=== PATIENT | female | born 1980 | race Caucasian/White ===

== ENCOUNTER 2018-08-12 10:46 | Emergency (ER) | payer MEDICAID ==
[2018-08-12 10:58] VITALS: BP 135/84
--- NOTE | 2018-08-12 11:31 | ED Physician Documentation ---
PD HPI FEMALE - Stated complaint Stated Complaint: 5 WKS PREG/BLEEDING - Chief complaint Chief Complaint: Abd Pain - History obtained from History obtained from: Patient, Family - History of Present Illness Timing - onset: Yesterday Timing - duration: Days (1) Timing - details: Gradual onset Pain level max: 2 Pain level max: 1 Associated symptoms: Vaginal bleeding. No: Fever OB-TECHNICAL ENGINEER History: G (3), P (2) Similar symptoms before: Has not had sx before Recently seen: Not recently seen Review of Systems Constitutional: denies: Fever Cardiac: denies: Chest pain / pressure Respiratory: denies: Cough Skin: denies: Rash Musculoskeletal: denies: Neck pain, Back pain Neurologic: denies: Headache PD PAST MEDICAL HISTORY - Past Medical History Past Medical History: No - Past Surgical History Past Surgical History: Yes /TECHNICAL ENGINEER: section - Present Medications Home Medications: Ambulatory Orders Medication Instructions Recorded Confirmed No Known Home Medications 08/12/18 08/12/18 - Allergies Allergies/Adverse Reactions: Allergies Allergy/AdvReac Type Severity Reaction Status Date / Time No Known Drug Allergies Allergy Verified 08/12/18 10:58 - Social History Does the pt smoke?: No Smoking Status: Never smoker Does the pt drink ETOH?: No Does the pt have substance abuse?: No - Immunizations Immunizations are current?: Yes PD ED PE NORMAL - Vitals Vital signs reviewed: Yes - General General: Alert and oriented X 3, No acute distress - HEENT HEENT: Moist mucous membranes - Neck Neck: Supple, no meningeal sign - Cardiac Cardiac: RRR - Respiratory Respiratory: No respiratory distress, Clear bilaterally - Abdomen Abdomen: Soft, Non tender, Non distended - Back Back: No CVA TTP, No spinal TTP - Derm Derm: Warm and dry - Extremities Extremities: No edema - Neuro Neuro: Alert and oriented X 3 Results - Vitals Vitals: Vital Signs - 24 hr 08/12/18 10:56 Temperature 36.8 C Heart Rate 81 Respiratory 18 Rate Blood Pressure 135/84 H O2 Saturation 99 Oxygen O2 Source Room air - Labs Labs: Laboratory Tests 08/12/18 08/12/18 08/12/18 11:21 11:21 11:21 WBC 7.4 RBC 4.70 Hgb 13.8 Hct 40.7 MCV 86.7 MCH 29.3 MCHC 33.8 RDW 13.1 Plt Count 301 MPV 7.8 L Neut # (Auto) 5.6 Lymph # (Auto) 1.3 L Alpine # (Auto) 0.4 Eos # (Auto) 0.1 Baso # (Auto) 0.1 Absolute Nucleated RBC 0.00 Nucleated RBC % 0.0 Sodium 138 Potassium 3.8 Chloride 104 Carbon Dioxide 23 Anion Gap 11.0 BUN 11 Creatinine 0.6 Estimated GFR (MDRD) 113 Glucose 105 H Calcium 9.3 Total Bilirubin 0.7 AST 18 ALT 18 Alkaline Phosphatase 64 Total Protein 8.1 Albumin 4.4 Globulin 3.7 Albumin/Globulin Ratio 1.2 Lipase 27 HCG, Quant Blood Type O POSITIVE 08/12/18 11:21 WBC RBC Hgb Hct MCV MCH MCHC RDW Plt Count MPV Neut # (Auto) Lymph # (Auto) Alpine # (Auto) Eos # (Auto) Baso # (Auto) Absolute Nucleated RBC Nucleated RBC % Sodium Potassium Chloride Carbon Dioxide Anion Gap BUN Creatinine Estimated GFR (MDRD) Glucose Calcium Total Bilirubin AST ALT Alkaline Phosphatase Total Protein Albumin Globulin Albumin/Globulin Ratio Lipase HCG, Quant 13.90 Blood Type - Rads (name of study) OB US Radiology: Prelim report reviewed, EMP read contemporaneously, See rad report ( of unknown location, no intrauterine gestation is detected. Given complex cystic right ovarian lesion, ectopic gestation is not confidently excluded on this single examination. Recommendation is for close interval followup including serial beta hCG, serial examination and followup ultrasound as indicated. ) PD MEDICAL DECISION MAKING - ED course Complexity details: reviewed results, re-evaluated patient, considered differential, d/w patient ED course: 37 year old female with likely miscarriage, but may represent an early ectopic. Patient was counseled that she will need a repeat hCG. I discussed the case with Dr. Corley, OB on-call who states that close follow-up should be fine at this time. 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 Ectopic precautions given at bedside. Patient counseled regarding signs and symptoms for which I believe and urgent re- evaluation would be necessary. Patient with good understanding of and agreement to plan and is comfortable going home at this time This document was made in part using voice recognition software. While efforts are made to proofread this document, sound alike and grammatical errors may occur. Departure - Departure Disposition: 01 Home, Self Care Clinical Impression: Threatened Condition: Good Instructions: ED Miscarriage Poss Follow-Up: [facility] [Provider Group] - Within 3 Days Comments: Follow up with OB in 3 days for a repeat HCG and possibly a repeat US. Your HCG is 14 today. Return sooner if you worsen. I spoke with Dr. Corley today. Discharge Date/Time: 08/12/18 14:42
[2018-08-12 11:33] LABS: BASOPHILS # (AUTO) 0.1 10^3/uL (0.0-0.1); BASOPHILS % (AUTO) 0.9 %; EOSINOPHILS # (AUTO) 0.1 10^3/uL (0.0-0.7); EOSINOPHILS % (AUTO) 1.7 %; HGB - HEMOGLOBIN 13.8 g/dL (12.0-16.0); LYMPHOCYTES # (AUTO) 1.3 10^3/uL (1.5-3.5); MEAN CORPUSCULAR HEMOGLOBIN 29.3 pg (27.0-31.0); MEAN CORPUSCULAR HGB CONC 33.8 g/dL (32.0-36.0); MEAN CORPUSCULAR VOLUME 86.7 fL (81.0-99.0); MEAN PLATELET VOLUME 7.8 fL (7.9-10.8); MONOCYTES # (AUTO) 0.4 10^3/uL (0.0-1.0); MONOCYTES % (AUTO) 5.3 %; NEUTROPHILS # (AUTO) 5.6 10^3/uL (1.5-6.6); NEUTROPHILS % (AUTO) 75.1 %; PLT - PLATELET COUNT 301 10^3/uL (130-450); RED CELL DISTRIBUTION WIDTH 13.1 % (12.0-15.0); WHITE BLOOD COUNT 7.4 x10^3/uL (4.8-10.8)
[2018-08-12 11:47] LABS: ALBUMIN 4.4 g/dL (3.2-5.5); ALBUMIN/GLOBULIN RATIO 1.2 (1.0-2.2); BILIRUBIN,TOTAL 0.7 mg/dL (0.2-1.0); CALCIUM 9.3 mg/dL (8.5-10.3); CREATININE 0.6 mg/dL (0.4-1.0); TOTAL PROTEIN 8.1 g/dL (6.7-8.2)
--- NOTE | 2018-08-12 13:37 | Ultrasound Report ---
Reason: 5 weeks preg vb Procedure Date: 08/12/2018 Accession Number: [id number] / [id number] Procedure: US - OB First Trimester CPT Code: FULL RESULT: EXAM: FIRST TRIMESTER OBSTETRIC ULTRASOUND (Less than 11 weeks) EXAM DATE: 08/12/2018 01:05 PM. CLINICAL HISTORY: Heavy vaginal bleeding, positive test. LMP: 07/06/2018. COMPARISONS: None. TECHNIQUE: Transabdominal and transvaginal ultrasound examination with static image documentation. CLINICAL DATES: EGA 5 weeks 2 days with ASTRID 04/12/2019 based on LMP. ASSESSMENT: Gestational Sac: Not seen. Endometrial thickness up to 0.5 cm. Embryo: Not seen. Cardiac activity: Not seen. Yolk sac: Not seen. Amniotic fluid: Not accurately assessed at this gestational age. Early placenta: Not visible at this gestational age. Other: No perigestational fluid collection demonstrated. MATERNAL STRUCTURES: Uterus: Anteverted. Unremarkable. Cervix: Closed. Right Ovary/Adnexa: The ovary measures 3.7 x 2.1 x 3.3 cm, volume 13.6 cc. Within the right ovary is a complex cyst measuring 2.5 x 2.2 x 1.7 cm with an asymmetric soft tissue component, nonspecific. Left Ovary/Adnexa: The ovary measures 2.7 x 2.1 x 2.9 cm, volume 8.7 cc. Unremarkable. Free Fluid: None. Other: None. IMPRESSION: 1. of unknown location, no intrauterine gestation is detected. 2. Given complex cystic right ovarian lesion, ectopic gestation is not confidently excluded on this single examination. Recommendation is for close interval followup including serial beta hCG, serial examination and followup ultrasound as indicated. RAND The call report notification system was initiated by Dr. Johnny Yates at 01:36 PM on 08/12/2018. Findings were discussed with Dr. Nolasco in person at 1:42 PM. The above call report findings were discussed with Joselito Nolasco by Dr. Johnny Yates at 01:42 PM on 08/12/2018.
== END 2018-08-12 14:42 | disposition home or self-care (01) ==
LOC: ED 10:46
DX: O20.0 Threatened abortion (principal); O34.81 Maternal care for other abnormalities of pelvic organs, first trimester; N83.201 Unspecified ovarian cyst, right side; Z3A.01 Less than 8 weeks gestation of pregnancy
CPT/HCPCS: 36415; 76801; 76817; 80053; 83690; 84702; 85025; 86900; 86901; 99282; 99283